=== PATIENT | male | born 1985 | race Caucasian/White ===

== ENCOUNTER 2023-10-05 15:52 | Emergency (ER) | payer OTHER ==
[~2023-10-05] VITALS: Ht 185.4 cm; Wt 95.3 kg
[2023-10-05 16:05] VITALS: BP 137/77; TEMP 98.4; O2SAT 100
== END 2023-10-05 18:06 | disposition home or self-care (01) ==
LOC: ER 15:52
DX: D18.01 Hemangioma of skin and subcutaneous tissue (principal)